=== PATIENT | male | born 1940 | race Caucasian/White ===

== ENCOUNTER → 2016-12-03 | Outpatient (CLI) | payer MEDICARE ==
[~2016-12-03] MED LIST: ACTOS45 MG PO; AMLO5TAB PO; AUGMENTIN1 TA2 PO; AZITHROMYCIN500 MG PO; AZOR 5 MG-40 MG1 TAB PO; AZOR 5-40 MG T1 EACH PO; BACTRIM DS 8001 TAB PO; DICLOFENAC SOD75 MG PO; ESOMEPRAZOLE MA20 MG PO; ESOMEPRAZOLE MA40 M1 PO; GLIPIZIDE10 MG PO; HYDROCHLOROTHIA25 M1 PO; HYDROCODONE/ACE1 TA5 PO; INSULIN GL100 UNITS/ SC; INSULIN GL100 UNITS1 SC; JANUVIA50 MG PO; LANTUS INS100 UNITS/ SC; LEVAQUIN500 MG PO; LOSARTAN POTAS100 MG PO; MEDROL 4MG. DOSE4 MG PO; METFORMIN HCL1000 MG PO; MORPHINE SULFAT30 M3 PO; MUCINEX600 M1 PO; NEXIUM20 MG PO; NEXIUM40 MG PO; OMNICEF 300 MG300 MG PO; PERCOCET 10 MG1 EACH PO; PERCOCET 5/3251 EACH PO; PHENERGAN 25MG.25 M1 PO; PIOGLITAZONE HC30 MG PO; PIOGLITAZONE HC45 MG PO; PREDNISONE 20MG20 MG PO; PROVENTIL0.09 MG/Ac IH; PYRIDIUM 200MG200 MG PO; SALMETEROL-F28 PUFF2 IN; SALMETEROL-F28 PUFFS IN; TESSALON PERLE100 M1 PO; TESSALON PERLE100 MG PO; VICTOZA6 MG/ML SC; ZITHROMAX Z-PA250 M2 PO
[2016-12-03 10:33] LABS: BUN 31 mg/dL (7-18)
[2016-12-03 11:06] LABS: GFR (ESTIMATED) 59 ML/MIN (>60)
[2016-12-04 08:40] LABS: Creatinine, Urine 138.4 mg/dL (Not Estab.); Microalbumin, Urine <3.0 ug/mL (Not Estab.)
== END ==
LOC: LAB 08:47
PROVIDERS: Nurse Practitioner Family
DX: I10 Essential (primary) hypertension (principal); E78.2 Mixed hyperlipidemia; E11.8 Type 2 diabetes mellitus with unspecified complications

== ENCOUNTER → 2017-04-04 | Outpatient (CLI) | payer MEDICARE ==
[2017-04-04 09:22] LABS: HEMOGLOBIN 11.5 g/dL (14.1-18.0); LYMPH # 2.7 K/mm3 (0.7-4.5); LYMPH % 20.1 % (10-50)
[2017-04-04 12:23] LABS: BUN 27 mg/dL (7-18)
[2017-04-04 12:28] LABS: GFR (ESTIMATED) 73 ML/MIN (>60)
[2017-04-05 10:40] LABS: Creatinine, Urine 105.6 mg/dL (Not Estab.); Microalbumin, Urine <3.0 ug/mL (Not Estab.)
== END ==
LOC: LAB 09:00
PROVIDERS: Nurse Practitioner Family
DX: E11.8 Type 2 diabetes mellitus with unspecified complications (principal); E78.2 Mixed hyperlipidemia; D64.9 Anemia, unspecified